=== PATIENT | male | born 2000 | race Caucasian/White ===

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

== ENCOUNTER 2021-08-11 14:11 | Emergency (ER) | payer OTHER ==
[~2021-08-11] VITALS: Ht 177.8 cm; Wt 59.1 kg
[2021-08-11 14:12] VITALS: BP 115/71
== END 2021-08-11 17:57 | disposition left against medical advice (07) ==
LOC: M ED 14:11
DX: Z53.21 Procedure and treatment not carried out due to patient leaving prior to being seen by health care provider (principal)

== ENCOUNTER 2022-01-16 23:34 | Emergency (ER) | payer OTHER ==
[2022-01-17 00:43] LABS: HEMATOCRIT 41.4 % (42.0-52.0); HEMOGLOBIN 14.7 g/dl (13.5-17.5); MEAN CORPUSCULAR HGB CONC 35.5 g/dl (32.0-36.5); MEAN CORPUSCULAR VOLUME 87.3 fl (80.0-96.0); PLATELET COUNT, AUTOMATED 262 10^3/uL (150-450); RED BLOOD COUNT 4.74 10^6/uL (4.30-6.10)
[2022-01-17 01:09] LABS: ACETAMINOPHEN LEVEL < 2.0 UG/ML (10.0-30.0); ALBUMIN 4.3 GM/DL (3.2-5.2); ALT/SGPT 19 U/L (12-78); BILIRUBIN,DIRECT 0.2 MG/DL (0.0-0.2); BILIRUBIN,TOTAL 0.3 MG/DL (0.2-1.0); BLOOD UREA NITROGEN 12 MG/DL (7-18); CARBON DIOXIDE LEVEL 24 MEQ/L (21-32); CHLORIDE LEVEL 109 MEQ/L (98-107); CREATININE FOR GFR 0.86 MG/DL (0.70-1.30); ETHYL ALCOHOL (ETHANOL) 0.167 % (0.000-0.010); GLOMERULAR FILTRATION RATE > 60.0 (>60); GLUCOSE, FASTING 108 MG/DL (70-100); POTASSIUM SERUM 4.1 MEQ/L (3.5-5.1); SODIUM LEVEL 141 MEQ/L (136-145); TOTAL PROTEIN 7.4 GM/DL (6.4-8.2)
[2022-01-17 02:13] LABS: AMPHETAMINES LEVEL URINE NEGATIVE (NEGATIVE); BARBITURATES URINE NEGATIVE (NEGATIVE); BENZODIAZEPINES URINE NEGATIVE (NEGATIVE); CANNABINOIDS URINE POSITIVE (NEGATIVE); COCAINE METABOLITE URINE NEGATIVE (NEGATIVE); METHADONE URINE NEGATIVE (NEGATIVE); OPIATES URINE NEGATIVE (NEGATIVE); PHENCYCLIDINE URINE NEGATIVE (NEGATIVE)
[2022-01-17 03:02] VITALS: BP 132/74
== END 2022-01-17 03:04 | disposition home or self-care (01) ==
LOC: M ED 23:34
DX: F10.288 Alcohol dependence with other alcohol-induced disorder (principal); F43.0 Acute stress reaction; R45.851 Suicidal ideations; F17.200 Nicotine dependence, unspecified, uncomplicated; F19.10 Other psychoactive substance abuse, uncomplicated

== ENCOUNTER 2022-04-10 20:51 | Emergency (ER) | payer OTHER ==
[~2022-04-10] VITALS: Ht 172.7 cm; Wt 59.1 kg
[2022-04-10] MEDS ORDERED: NORCO, ANEXSIA 5/325MG TABLET (HYDROcodone/ACETAMINOPHEN) PO ONE (21:50)
[2022-04-10] MEDS ORDERED: HYDR-3713 PO (22:29)
[2022-04-10 22:39] VITALS: BP 129/64
== END 2022-04-10 22:40 | disposition home or self-care (01) ==
LOC: M ED 20:51
DX: S62.317A Displaced fracture of base of fifth metacarpal bone, left hand, initial encounter for closed fracture (principal); W22.8XXA Striking against or struck by other objects, initial encounter; F17.200 Nicotine dependence, unspecified, uncomplicated; Y92.9 Unspecified place or not applicable; Y93.9 Activity, unspecified; Y99.9 Unspecified external cause status

== ENCOUNTER 2022-04-19 19:32 | Emergency (ER) | payer OTHER ==
[~2022-04-19] VITALS: Ht 174 cm; Wt 63.0 kg
[~2022-04-19 19:32] MED LIST changes: +HYDR-3713 PO
[2022-04-19 19:33] VITALS: BP 130/64
== END 2022-04-19 21:06 | disposition left against medical advice (07) ==
LOC: M ED 19:32
DX: Z53.21 Procedure and treatment not carried out due to patient leaving prior to being seen by health care provider (principal)

== ENCOUNTER 2022-04-20 21:45 | Emergency (ER) | payer OTHER ==
[~2022-04-20] VITALS: Ht 174 cm; Wt 64.0 kg
[2022-04-20 21:45] VITALS: BP 105/61
== END 2022-04-21 01:25 | disposition left against medical advice (07) ==
LOC: M ED 21:45
DX: Z53.21 Procedure and treatment not carried out due to patient leaving prior to being seen by health care provider (principal)

== ENCOUNTER 2022-12-23 10:51 | Emergency (ER) | payer OTHER ==
[~2022-12-23] VITALS: Ht 175.3 cm; Wt 57.8 kg
[~2022-12-23 10:51] MED LIST changes: +LIDO15SO2 PO; -LIDO2SO PO
[2022-12-23] MEDS ORDERED: ONDANSETRON 4MG ORAL DISINTEGRATING TAB PO ONE (12:15)
[2022-12-23] MEDS ORDERED: AUGMENTIN 875 MG TAB PO ONE (12:40)
[2022-12-23] MEDS ORDERED: AMOX875T2 PO (12:40)
[2022-12-23 12:46] VITALS: BP 133/56; TEMP 97.7; O2SAT 97
== END 2022-12-23 13:01 | disposition home or self-care (01) ==
LOC: M ED 10:51
DX: S61.411A Laceration without foreign body of right hand, initial encounter (principal); W54.0XXA Bitten by dog, initial encounter; Y92.410 Unspecified street and highway as the place of occurrence of the external cause; Z79.2 Long term (current) use of antibiotics

== ENCOUNTER 2023-08-03 23:26 | Emergency (ER) | payer OTHER, SELFPAY ==
[~2023-08-03] VITALS: Ht 180.3 cm; Wt 65.2 kg
[2023-08-03 23:26] VITALS: BP 132/81; TEMP 98.7; O2SAT 99
[~2023-08-03 23:26] MED LIST changes: +AMOX875T2 PO
== END 2023-08-04 01:49 | disposition left against medical advice (07) ==
LOC: M ED 23:26
DX: Z53.21 Procedure and treatment not carried out due to patient leaving prior to being seen by health care provider (principal)

== ENCOUNTER 2025-03-02 16:14 | Emergency (ER) | payer SELFPAY ==
[~2025-03-02] VITALS: Ht 180.3 cm; Wt 61.5 kg
[~2025-03-02 16:14] MED LIST changes: -LIDO15SO2 PO; +LIDO15SO9 PO
[2025-03-02 16:17] VITALS: BP 125/74; TEMP 98.3; O2SAT 99
== END 2025-03-02 17:27 | disposition left against medical advice (07) ==
LOC: M ED 16:14
DX: Z53.21 Procedure and treatment not carried out due to patient leaving prior to being seen by health care provider (principal)

== ENCOUNTER 2025-03-17 12:07 | Emergency (ER) | payer MEDICAID, SELFPAY ==
[~2025-03-17] VITALS: Ht 180.3 cm; Wt 67.2 kg
[2025-03-17 12:10] VITALS: BP 146/105; TEMP 97.2; O2SAT 98
== END 2025-03-17 12:45 | disposition left against medical advice (07) ==
LOC: M ED 12:07
DX: Z53.21 Procedure and treatment not carried out due to patient leaving prior to being seen by health care provider (principal)

== ENCOUNTER 2025-04-03 06:39 | Emergency (ER) | payer MEDICAID, SELFPAY ==
[~2025-04-03] VITALS: Ht 180.3 cm; Wt 61.1 kg
[2025-04-03 06:40] VITALS: BP 123/76; TEMP 96.7; O2SAT 99
== END 2025-04-03 08:31 | disposition left against medical advice (07) ==
LOC: M ED 06:39
DX: Z53.21 Procedure and treatment not carried out due to patient leaving prior to being seen by health care provider (principal)

== ENCOUNTER 2025-05-02 06:24 | Emergency (ER) | payer OTHER, SELFPAY ==
[~2025-05-02] VITALS: Ht 180.3 cm; Wt 62.9 kg
[2025-05-02 06:28] VITALS: TEMP 97.3
[2025-05-02] MEDS: LIDOCAINE W/EPINEPHrine 1% 20 ML VIAL SC ONE (07:55)
[2025-05-02 08:42] LABS: BASO # 0.0 10^3/uL (0.0-0.2); BASO % 0.4 % (0.0-1.0); EOS # 0.1 10^3/uL (0.0-0.5); EOS % 0.9 % (0.0-3.0); LYMPH # 2.4 10^3/uL (1.5-5.0); LYMPH % 34.2 % (24.0-44.0); MONO # 0.5 10^3/uL (0.0-0.8); MONO % 7.0 % (2.0-8.0); NEUTROPHILS # 4.0 10^3/uL (1.5-8.5); NEUTROPHILS % 57.4 % (36.0-66.0); PLATELET COUNT, AUTOMATED 387 10^3/uL (150-450)
[2025-05-02] MEDS: IBUPROFEN 800 MG TAB PO ONE (08:42)
[2025-05-02 08:45] VITALS: BP 122/76
[2025-05-02 08:56] LABS: ALT/SGPT 22 U/L (7.0-40); AST/SGOT 39 U/L (<34); CALCIUM LEVEL 9.5 MG/DL (8.5-10.1); CARBON DIOXIDE LEVEL 27 MMOL/L (20-31); CHLORIDE LEVEL 104 MMOL/L (98-107); CREATININE FOR GFR 0.86 MG/DL (0.70-1.30); GLOMERULAR FILTRATION RATE > 90.0 (>60); POTASSIUM SERUM 5.1 MMOL/L (3.5-5.1); SODIUM LEVEL 141 MMOL/L (136-145)
[2025-05-02 09:25] VITALS: O2SAT 99
[2025-05-02] MEDS ORDERED: BACT800T5 PO (09:43)
[2025-05-02] MEDS: BACTRIM 160MG/800MG DS TAB PO ONE (09:54)
[2025-05-04] MEDS ORDERED: DOXY-442 PO (07:12)
== END 2025-05-02 10:03 | disposition left against medical advice (07) ==
LOC: M ED 06:24
DX: L03.314 Cellulitis of groin (principal); M71.052 Abscess of bursa, left hip; F41.9 Anxiety disorder, unspecified; F10.10 Alcohol abuse, uncomplicated; F32.A Depression, unspecified; Z79.2 Long term (current) use of antibiotics; Z79.899 Other long term (current) drug therapy; Z53.9 Procedure and treatment not carried out, unspecified reason